=== PATIENT | male | born 1950 | race Caucasian/White ===

== ENCOUNTER → 2016-10-18 | Outpatient (CLI) | payer OTHER ==
--- NOTE | 2016-10-18 13:12 | DX ---
Right Ankle 3 Views History: Trauma, pain. Comparison: None available. Findings: No fracture is identified. Alignment is normal. Pes planus is noted. Small tibial osteophy gregory are present at the tibiotalar articulation. Bone mineralization is normal. The talar dome and ank le mortise are intact. There is moderate lateral soft tissue swelling. There is a small joint effusio n. Impression: No acute osseous findings.
== END ==
LOC: BRMIMAGING 12:01
PROVIDERS: ATTEND Physician Assistant
DX: M25.571 Pain in right ankle and joints of right foot (principal)
CPT/HCPCS: 73610-PO

== ENCOUNTER → 2016-11-11 | Outpatient (CLI) | payer OTHER ==
--- NOTE | 2016-11-11 10:31 | DX ---
Right Foot and Right Ankle 9:46 a.m. Clinical History: 66-year-old male with pes planus and persistent pain and swelling after a fall sust ained on October 17, 2016. Comparison Study: Right ankle, dated October 18, 2016. Findings: RIGHT ANKLE (3 Views, at 9:47 a.m.): In the interim, a fiberglass splint has been placed, which obscu res fine bone detail. There is persistent lateralized soft tissue swelling. There is no fracture, dis location, or mortise displacement. There is a small ankle joint effusion. There is a small osteophyte seen posteriorly at the tibiotalar articulation. There is pes planus. Impression: 1. Lateral ankle sprain, with no fracture observed. 2. Pes planus. RIGHT FOOT (4 Views, at 9:46 a.m.): There is pes planus. There is a well-corticated ossific density a long the plantar portion of the hindfoot. The tarsometatarsal alignment is anatomic the bones appear mildly demineralized. Impression: 1. There is no acute or subacute osseous abnormality identified. 2. Pes planus. If there is further clinical concern regarding the patient's pain, MR imaging be considered. Results were discussed with a leather goods sales representative from Dr. Michael Dickens's office at 10:20 a.m. on Monday mo rning November 11, 2016.
== END ==
LOC: BRMIMAGING 09:38
PROVIDERS: ATTEND Internal Medicine
DX: S93.401A Sprain of unspecified ligament of right ankle, initial encounter (principal); M21.41 Flat foot [pes planus] (acquired), right foot
CPT/HCPCS: 73610-PO; 73630-PO